=== PATIENT | male | born 1970 | race Caucasian/White ===

== ENCOUNTER 2018-07-21 17:58 | Emergency (ER) | payer OTHER ==
[2018-07-21] MEDS: KETOROLAC 30 MG INJ IM (19:29)
== END 2018-07-21 20:33 | disposition home or self-care (01) ==
LOC: FTE 17:58
DX: S76.011A Strain of muscle, fascia and tendon of right hip, initial encounter (principal); S76.911A Strain of unspecified muscles, fascia and tendons at thigh level, right thigh, initial encounter; W18.39XA Other fall on same level, initial encounter; Y92.9 Unspecified place or not applicable
CPT/HCPCS: 73510; 96372; 99284-25